=== PATIENT | female | born 1970 | race Caucasian/White ===

== ENCOUNTER 2016-11-19 09:53 | Emergency (ER) | payer BC ==
[~2016-11-19] VITALS: Ht 165.1 cm; Wt 122.3 kg
[~2016-11-19 09:53] MED LIST: AMBIEN 10MG10 MG PO; AMOXICILLIN 8751 TAB PO; BACTRIM DS 8001 TAB PO; CELEXA10 MG PO; CEPHALEXIN500 M1 PO; DOXYCYCLINE 10100 MG PO; HYDROCODONE/APAP; HYDROXYZINE10 M1 PO; LEXAPRO10 MG PO; LISINOPRIL5 MG PO; LORTAB 5/500 501 TAB PO; MICROGESTIN 1.51 TAB PO; NO HOME MEDICATIONS; NORCO 325 MG-7.1 TAB PO; PRILOSEC 20MG20 MG PO; SOMA
[2016-11-19 09:59] VITALS: TEMP 98.1
[2016-11-19] MEDS ORDERED: ULTRAM 50MG TAB50 MG PO (10:03)
[2016-11-19] MEDS ORDERED: LEXAPRO20 MG PO (10:27)
[2016-11-19] MEDS ORDERED: MOBIC15 MG PO (10:28)
[2016-11-19] MEDS ORDERED: PRINIVIL10 MG PO (10:28)
[2016-11-19] MEDS ORDERED: ANTIVERT 25MG25 MG PO (10:29)
[2016-11-19] MEDS ORDERED: LIDODERM 5% PATC1 EA TP (10:29)
[2016-11-19 11:36] LABS: ADJUSTED CALCIUM 9.6 mg/dL (8.4-10.2); ALANINE AMINOTRANSFERASE 19 U/L (9-52); ALBUMIN 4.4 gm/dL (3.5-5.0); ALKALINE PHOSPHATASE 96 U/L (50-136); ANION GAP 13 mmol/L (7-16); BILIRUBIN,TOTAL 1.4 mg/dL (0.0-1.0); BLOOD UREA NITROGEN 9 mg/dL (7-17); CALCIUM 9.9 mg/dL (8.4-10.2); CARBON DIOXIDE 22 mmol/L (22-30); CHLORIDE 102 mmol/L (98-107); CREATININE, serum 0.63 mg/dL (0.52-1.25); GLUCOSE 97 mg/dL (74-106); POTASSIUM 3.6 mmol/L (3.4-5.0); SODIUM 137 mmol/L (137-145)
[2016-11-19 11:41] LABS: PH 5 (5-8); URINE APPEARANCE Turbid; URINE BACTERIA Rare /hpf; URINE BILIRUBIN Negative (NEGATIVE); URINE BLOOD Negative (NEGATIVE); URINE COLOR Amber; URINE GLUCOSE Negative (NEGATIVE); URINE KETONE 2+ (NEGATIVE); URINE RBC None Seen /hpf; URINE UROBILINOGEN Negative (NEGATIVE); URINE WBC None Seen /hpf
[2016-11-19 11:42] LABS: C-REACTIVE PROTEIN < 0.5 mg/dL (0.0-0.9)
[2016-11-19 11:45] LABS: BASO % 0.4 % (0.0-2.0); EOS # 0.2 (0.0-0.7); EOS % 2.3 % (0-4.0); GRAN # 5.4 (1.4-6.5); GRAN % 69.1 % (42.2-75.2); HEMATOCRIT 42.4 % (37.0-47.0); HEMOGLOBIN 14.4 g/dl (12.5-16.0); LYMPH # 1.6 (1.2-3.4); LYMPH % 20.8 % (20.0-51.0); MEAN CELL VOLUME 102 fl (80.0-100.0); MEAN CORPUSCULAR HEMOGLOBIN 35 pg (27.0-31.0); MEAN CORPUSCULAR HGB CONC 34 g/dl (33.0-37.0); MEAN PLATELET VOLUME 9.7 fl (7.4-10.4); MONO # 0.6 (0.1-0.6); PLATELET COUNT 277 K/mm3 (130-400); RED BLOOD COUNT 4.15 M/mm3 (4.10-5.30); REDCELL DISTRIBUTION WIDTH-CV 12.5 % (11.5-14.5); WHITE BLOOD COUNT 7.8 K/mm3 (4.8-10.8)
[2016-11-19] MEDS ORDERED: ZOFRAN ODT4 MG PO (14:03)
[2016-11-19 14:08] VITALS: BP 164/104; PULSE 74
== END 2016-11-19 14:10 | disposition home or self-care (01) ==
LOC: COL.ER 09:53
PROVIDERS: Emergency Medicine
DX: R10.84 Generalized abdominal pain (principal); H81.10 Benign paroxysmal vertigo, unspecified ear; I10 Essential (primary) hypertension; Z87.891 Personal history of nicotine dependence
CPT/HCPCS: J1170; J1200; J1630; J7030

== ENCOUNTER 2017-04-06 09:18 | Emergency (ER) | payer BC ==
[~2017-04-06] VITALS: Ht 165.1 cm; Wt 127.7 kg
[~2017-04-06 09:18] MED LIST changes: +ANTIVERT 25MG25 MG PO; +LEXAPRO20 MG PO; +LIDODERM 5% PATC1 EA TP; +MOBIC15 MG PO; +PRINIVIL10 MG PO; +ULTRAM 50MG TAB50 MG PO; +ZOFRAN ODT4 MG PO
[2017-04-06 09:23] VITALS: BP 137/93; PULSE 92; TEMP 98.9
[2017-04-06] MEDS ORDERED: MOBIC 7.5MG7.5 MG PO (10:58)
== END 2017-04-06 10:59 | disposition home or self-care (01) ==
LOC: COL.ER 09:18
DX: M17.11 Unilateral primary osteoarthritis, right knee (principal); I10 Essential (primary) hypertension; F32.9 Major depressive disorder, single episode, unspecified; F41.9 Anxiety disorder, unspecified; G89.29 Other chronic pain; M54.9 Dorsalgia, unspecified; Z98.890 Other specified postprocedural states

== ENCOUNTER → 2017-06-09 | Outpatient (CLI) | payer BC ==
[~2017-06-09] MED LIST changes: +FLEXERIL 1010 MG/TAB PO; +MOBIC 7.5MG7.5 MG PO; +NORCO 325 MG-51 TAB PO
== END ==
LOC: COL.RAD 12:53
DX: M41.86 Other forms of scoliosis, lumbar region (principal); M43.16 Spondylolisthesis, lumbar region; M51.36 Other intervertebral disc degeneration, lumbar region; M54.42 Lumbago with sciatica, left side

== ENCOUNTER 2017-06-18 09:05 | Emergency (ER) | payer BC ==
[~2017-06-18] VITALS: Ht 165.1 cm; Wt 132.3 kg
[~2017-06-18 09:05] MED LIST changes: -FLEXERIL 1010 MG/TAB PO; -NORCO 325 MG-51 TAB PO
[2017-06-18 09:11] VITALS: BP 135/89; TEMP 97.9
[2017-06-18] MEDS ORDERED: FLEXERIL 1010 MG/TAB PO (09:31)
[2017-06-18] MEDS ORDERED: NORCO 325 MG-51 TAB PO (09:47)
[2017-06-18 10:00] VITALS: PULSE 88
== END 2017-06-18 10:00 | disposition home or self-care (01) ==
LOC: COL.ER 09:05
DX: M79.671 Pain in right foot (principal); I10 Essential (primary) hypertension; F32.9 Major depressive disorder, single episode, unspecified; Z85.3 Personal history of malignant neoplasm of breast; Z87.891 Personal history of nicotine dependence

== ENCOUNTER → 2018-03-16 | Outpatient (CLI) | payer BC ==
[~2018-03-16] MED LIST changes: +FLEXERIL 1010 MG/TAB PO; +NORCO 325 MG-51 TAB PO
== END ==
LOC: COL.RAD 14:35
DX: M51.36 Other intervertebral disc degeneration, lumbar region (principal); M48.061 Spinal stenosis, lumbar region without neurogenic claudication; M43.16 Spondylolisthesis, lumbar region; M53.86 Other specified dorsopathies, lumbar region

== ENCOUNTER → 2019-09-02 | Outpatient (CLI) | payer BC | LOC: MC.RAD 07:25 | DX: N63.20 Unspecified lump in the left breast, unspecified quadrant (principal); Z98.890 Other specified postprocedural states; Z92.3 Personal history of irradiation | CPT/HCPCS: G0279 ==

== ENCOUNTER → 2022-06-09 | Outpatient (CLI) | payer OTHER ==
[2022-06-09 13:20] LABS: COLLECTION METHOD CLEAN CATCH
[2022-06-09 13:26] LABS: BASO # 0.1 K/mm3 (0.0-0.2); BASO % 0.8 % (0.0-2.0); EOS # 0.2 K/mm3 (0.0-0.7); EOS % 2.8 % (0.0-4.0); GRAN # 4.9 K/mm3 (1.4-6.5); GRAN % 64.9 % (42.2-75.2); HEMATOCRIT 44.7 % (37.0-47.0); HEMOGLOBIN 15.2 g/dl (12.5-16.0); LYMPH # 1.8 K/mm3 (1.2-3.4); LYMPH % 24.2 % (20.0-51.0); MEAN CELL VOLUME 103 fl (80.0-100.0); MEAN CORPUSCULAR HEMOGLOBIN 35 pg (27-31); MEAN CORPUSCULAR HGB CONC 34 g/dl (33.0-37.0); MEAN PLATELET VOLUME 9.5 fl (7.4-10.4); MONO # 0.5 K/mm3 (0.1-0.6); PLATELET COUNT 229 K/mm3 (130-400); RED BLOOD COUNT 4.36 M/mm3 (4.10-5.30); REDCELL DISTRIBUTION WIDTH-CV 12.2 % (11.5-14.5)
[2022-06-09 13:31] LABS: URINE BACTERIA None Seen /hpf (NONE SEEN); URINE RBC 0-2 /hpf (0-2)
[2022-06-09 13:34] LABS: PH 6.5 (5.0-8.5); URINE APPEARANCE Clear (CLEAR/HAZY); URINE BLOOD TRACE-INTACT (NEGATIVE); URINE COLOR Yellow (YELLOW); URINE GLUCOSE Negative (NEGATIVE); URINE KETONE Negative (NEGATIVE); URINE NITRATE Negative (NEGATIVE); URINE PROTEIN(semi-quant) Negative (NEGATIVE); URINE UROBILINOGEN 0.2 E.U/dL (0.2-1.0)
[2022-06-09 13:47] LABS: BILIRUBIN,TOTAL 0.5 mg/dL (0.2-1.2); CALCIUM 9.8 mg/dL (8.4-10.2); CREATININE, serum 0.78 mg/dL (0.57-1.11); POTASSIUM 4.3 mmol/L (3.5-4.5); TOTAL PROTEIN 7.4 gm/dL (6.2-8.1)
== END ==
LOC: COL.LAB 12:56
PROVIDERS: Family Medicine
DX: Z01.818 Encounter for other preprocedural examination (principal)

== ENCOUNTER → 2022-06-12 | Outpatient (CLI) | payer OTHER | LOC: COL.CARD 11:20 | DX: Z01.818 Encounter for other preprocedural examination (principal) ==

== ENCOUNTER 2023-12-21 15:22 | Inpatient (IN) | payer SELFPAY ==
[~2023-12-21] VITALS: Ht 165.1 cm; Wt 127.2 kg
[2023-12-21 17:02] LABS: ALBUMIN 3.3 gm/dL (3.5-5.0); BILIRUBIN,TOTAL 0.6 mg/dL (0.2-1.2); C-REACTIVE PROTEIN 5.18 mg/dL (0.00-0.50); CALCIUM 9.4 mg/dL (8.4-10.2); CREATININE, serum 1.68 mg/dL (0.57-1.11); POTASSIUM 4.6 mmol/L (3.5-4.5); TOTAL PROTEIN 7.8 gm/dL (6.2-8.1)
[2023-12-21 17:09] LABS: TROPONIN-I 0.012 ng/mL (0.00-0.033)
[2023-12-21] MEDS ORDERED: NS 1,000 ML IV ONE (17:30)
[2023-12-21 18:29] LABS: HEMATOCRIT 45.4 % (37.0-47.0); HEMOGLOBIN 15.7 g/dl (12.5-16.0); MEAN CELL VOLUME 94 fl (80.0-100.0); MEAN CORPUSCULAR HEMOGLOBIN 33 pg (27-31); MEAN CORPUSCULAR HGB CONC 35 g/dl (33.0-37.0); MEAN PLATELET VOLUME 11.5 fl (7.4-10.4); PLATELET COUNT 177 K/mm3 (130-400); RED BLOOD COUNT 4.81 M/mm3 (4.10-5.30); REDCELL DISTRIBUTION WIDTH-CV 12.8 % (11.5-14.5)
[2023-12-21 19:15] LABS: COLLECTION METHOD CLEAN CATCH
[2023-12-21 19:23] LABS: PH 5.5 (5.0-8.5); URINE APPEARANCE CLOUDY (CLEAR/HAZY); URINE BLOOD NEGATIVE (NEGATIVE); URINE COLOR Dark Yellow (YELLOW); URINE GLUCOSE NEGATIVE (NEGATIVE); URINE KETONE TRACE (NEGATIVE); URINE NITRATE NEGATIVE (NEGATIVE); URINE PROTEIN(semi-quant) 1+ (NEGATIVE)
[2023-12-21] MEDS ORDERED: Iohexol 300 - 100 ML VIAL IV ONE (19:26)
[2023-12-21] MEDS ORDERED: NS 50 ML IV ONE (19:27)
[2023-12-21 19:34] LABS: URINE RBC 0-2 /hpf (0-2)
[2023-12-21 19:35] LABS: MUCOUS PRESENT (NOT PRESENT); URINE BACTERIA MODERATE /hpf (NONE SEEN)
[2023-12-21] MEDS ORDERED: NS 1,000 ML IV SCH (19:45)
[2023-12-21] MEDS ORDERED: Melatonin 3 MG TAB PO PRN (19:45)
[2023-12-21] MEDS ORDERED: Docusate Sodium 100 MG CAP PO PRN (19:45)
[2023-12-21] MEDS ORDERED: Acetaminophen 325 MG TAB PO PRN (19:45)
[2023-12-21] MEDS ORDERED: Ondansetron 4 MG/2 ML VIAL IV PRN (19:45)
[2023-12-21 20:43] LABS: ANISOCYTOSIS 1+; BAND 14 % (0-10); EOSINOPHIL 3 % (0-4); LYMPHOCYTE 49 % (20.0-51.0); NEUTROPHILS 32 % (42.0-75.2); PLATELET ESTIMATE NORMAL (NORMAL)
[2023-12-21] MEDS ORDERED: Heparin 5,000 UNITS/ML 1 ML VIAL SQ SCH (21:00)
[2023-12-21] MEDS ORDERED: CYMBALTA 60MG60 MG PO (21:49)
[2023-12-21] MEDS ORDERED: AMOXICILLIN 8751 TAB PO (21:52)
[2023-12-21] MEDS ORDERED: NEURONTIN300 MG/CAP PO (21:53)
[2023-12-21] MEDS ORDERED: SINEQUAN 5050 MG/CAP PO (21:53)
[2023-12-21] MEDS ORDERED: cefTRIAXone 2 G in Water For Injection,Sterile 20 ML IV SCH (22:30)
[2023-12-21] MEDS ORDERED: metroNIDAZOLE 100 ML IV SCH (22:30)
[2023-12-21] MEDS ORDERED: Doxepin 25 MG CAP PO SCH (22:32)
[2023-12-21] MEDS ORDERED: DULoxetine 60 MG CAP PO SCH (22:32)
[2023-12-21] MEDS ORDERED: Gabapentin 300 MG CAP PO SCH (22:32)
[2023-12-22] VITALS (9 sets, daily range): BP systolic 98–125; BP diastolic 62–77; PULSE 101–125; TEMP 98.5–100.5
[2023-12-22] MEDS ORDERED: cefTRIAXone 1 G in Water For Injection,Sterile 10 ML IV SCH (01:15)
--- NOTE | 2023-12-22 04:13 | NUR ---
PT ARRIVED TO THE UNIT AROUND MN. ALERT AND ORIENTED. SHIFT ASSESSMENT COMPLETE, MEDICATED PER EMAR. EVEN UNLABORED RESPR. DENIES FUTHER NEED AT THIS TIMW CALL LIGHT WITHIN REACH, WILL CALL FOR ASSISSTANC TO RESTROOM.
[2023-12-22 07:37] LABS: MEAN CORPUSCULAR HGB CONC 35 g/dl (33.0-37.0); PLATELET COUNT 138 K/mm3 (130-400); RED BLOOD COUNT 3.82 M/mm3 (4.10-5.30); REDCELL DISTRIBUTION WIDTH-CV 12.8 % (11.5-14.5)
[2023-12-22 07:48] LABS: HEMATOCRIT 36.1 % (37.0-47.0); HEMOGLOBIN 12.6 g/dl (12.5-16.0); MEAN CELL VOLUME 95 fl (80.0-100.0); MEAN CORPUSCULAR HEMOGLOBIN 33 pg (27-31)
[2023-12-22 07:51] LABS: CALCIUM 8.1 mg/dL (8.4-10.2); CREATININE, serum 0.83 mg/dL (0.57-1.11); POTASSIUM 4.1 mmol/L (3.5-4.5)
[2023-12-22 08:23] LABS: BAND 10 % (0-10); EOSINOPHIL 1 % (0-4); NEUTROPHILS 38 % (42.0-75.2)
[2023-12-22 08:24] LABS: PLATELET ESTIMATE NORMAL (NORMAL)
[2023-12-22 08:26] LABS: LYMPHOCYTE 46 % (20.0-51.0)
[2023-12-22] MEDS ORDERED: NORCO 325 MG-101 TAB PO (10:19)
[2023-12-22] MEDS ORDERED: ROBAXIN 75750 MG/TAB PO (10:20)
[2023-12-22] MEDS ORDERED: PRINIVIL40 MG PO (10:21)
--- NOTE | 2023-12-22 11:47 | NUR ---
D: Initial visit: Food Service Utility Worker stopped by room on rounds. Pt was resting and content. A: Pt has no needs right now. P: Food Service Utility Worker informed pt that if she needed anything from the accounts receivable coordinator area to let her nurse know. Food Service Utility Worker will follow up as needed.
--- NOTE | 2023-12-22 16:42 | NUR ---
SW contacted financial counseling to visit with patient as she does not currently have insurance. side door worker met with patient to discuss discharge planning. Patient lives in [place] with her , Cayetano, P# [phone]. PCP is Zane Berad, pharmacy is [facility]. Patient reports she does not currently have insurance but is working on getting established with Medicare. SW explained she would have financial counseling come assist with a FAA. No DPOA-HC, no interest in completing one at this time. DME is cane, walker and gait belt. Patient reports to be independent with ADLS and is able to transport herself to and from appointments. Patient would like to return home at time of discharge. DIscharge plan: Home
--- NOTE | 2023-12-22 23:07 | NUR ---
Assessment complete. Patient verbally denies any pain at this time. States she is hopeful that she'll be able to get some sleep tonight. Bed remains in lowest position and call light within reach. Denies any other needs at this time.
[2023-12-23] VITALS (9 sets, daily range): BP systolic 105–121; BP diastolic 66–79; PULSE 97–120; TEMP 98.1–99.3
--- NOTE | 2023-12-23 09:44 | NUR ---
grove worker attended interdisciplinary clinical rounding with Dr. Isidro. Patient will discharge home today. SW contacted financial counselor, Safia Cardozo, to verify if a FAA was completed yesterday. Safia is uncertain if one was completed, she will come visit with the patient prior to discharge today to ensure it is completed.
[2023-12-23 11:01] LABS: CALCIUM 8.2 mg/dL (8.4-10.2); CREATININE, serum 0.72 mg/dL (0.57-1.11); MAGNESIUM 1.6 mg/dL (1.6-2.6); POTASSIUM 3.6 mEq/L (3.5-4.5)
[2023-12-23] MEDS ORDERED: NS 100 ML IV SCH (11:23)
[2023-12-23] MEDS ORDERED: Iohexol 300 - 100 ML VIAL IV ONE (11:23)
[2023-12-23] MEDS ORDERED: CLEOCIN HCL300 MG PO (16:14)
--- NOTE | 2023-12-23 18:36 | NUR ---
Pt discharged to home, picked up by . Educated on discharge instructions and new medications, pt verbalized understanding. IV removed prior to discharge, tip intact. All belongings sent home with patient. Assisted out car by nursing staff.
== END 2023-12-23 18:39 | disposition home or self-care (01) | DRG 872 ==
LOC: COL.ER 15:22 → MEDICAL 19:44
PROVIDERS: Internal Medicine; Nurse Practitioner Primary Care; Physician Assistant; ADMIT Internal Medicine
DX: A41.9 Sepsis, unspecified organism (principal); N17.9 Acute kidney failure, unspecified; F11.20 Opioid dependence, uncomplicated; N39.0 Urinary tract infection, site not specified; E87.1 Hypo-osmolality and hyponatremia; Z68.42 Body mass index [BMI] 45.0-49.9, adult; M54.2 Cervicalgia; I10 Essential (primary) hypertension; E66.01 Morbid (severe) obesity due to excess calories; Z20.822 Contact with and (suspected) exposure to COVID-19; Z96.651 Presence of right artificial knee joint; E87.5 Hyperkalemia; K04.7 Periapical abscess without sinus; E86.1 Hypovolemia; R65.20 Severe sepsis without septic shock; Z96.611 Presence of right artificial shoulder joint; R79.89 Other specified abnormal findings of blood chemistry; G89.29 Other chronic pain; K76.0 Fatty (change of) liver, not elsewhere classified; Z90.89 Acquired absence of other organs; Z90.49 Acquired absence of other specified parts of digestive tract; Z90.721 Acquired absence of ovaries, unilateral; Z88.6 Allergy status to analgesic agent; Z91.040 Latex allergy status; Z87.891 Personal history of nicotine dependence; Z79.899 Other long term (current) drug therapy; Z23 Encounter for immunization
CPT/HCPCS: J0696; J1644; J2405; J7030; Q9967